=== PATIENT | female | born 1990 | race Caucasian/White ===

== ENCOUNTER → 2016-04-21 | Outpatient (CLI) | payer BC ==
[~2016-04-21] MED LIST: PRENAT PO
[2016-04-21 06:37] LABS: BASOPHIL # 0.1 10^3/ul (0.0-0.1); BASOPHILS % 0.9 % (0.0-2.0); EOSINOPHILS # 0.2 10^3/ul (0.0-0.5); EOSINOPHILS % 1.7 % (0.0-7.0); HEMATOCRIT 30.6 % (37.0-47.0); HEMOGLOBIN 10.8 g/dl (12.0-16.0); LYMPHOCYTES # 2.7 10^3/ul (0.8-2.9); LYMPHOCYTES % 29.4 % (15.0-51.0); MEAN CORPUSCULAR HEMOGLOBIN 32.9 pg (29.0-33.0); MEAN CORPUSCULAR HGB CONC 35.1 g/dl (32.0-37.0); MEAN CORPUSCULAR VOLUME 93.6 fl (82.0-101.0); MEAN PLATELET VOLUME 6.7 fl (7.4-10.4); MONOCYTE # 0.6 10^3/ul (0.3-0.9); NEUTROPHIL # 5.5 10^3/ul (1.6-7.5); PLATELET COUNT 214 10^3/UL (140-440); RED BLOOD COUNT 3.27 10^6/ul (4.20-5.40); RED CELL DISTRIBUTION WIDTH 13.3 % (11.5-14.5)
[2016-04-21 06:47] LABS: CONDITION 1
== END | disposition home or self-care (01) ==
LOC: LAB 05:19
PROVIDERS: ATTEND Obstetrics & Gynecology
DX: O24.419 Gestational diabetes mellitus in pregnancy, unspecified control (principal); Z3A.00 Weeks of gestation of pregnancy not specified
CPT/HCPCS: 82950; 85025

== ENCOUNTER 2016-06-25 14:10 | Outpatient (CLI) | payer BC ==
[~2016-06-25] VITALS: Ht 154.9 cm; Wt 68.0 kg
[2016-06-25] MEDS ORDERED: PRENAT PO (14:23)
[2016-06-25 14:43] VITALS: BP 107/56; PULSE 92; RESP 18
[2016-06-25] MEDS ORDERED: TERBUTALINE 1 MG/ML INJ SC STA (15:17)
[2016-06-25] MEDS ORDERED: LACTATED RINGER'S 1,000 ML IV* SCH (15:30)
[2016-06-25] MEDS ORDERED: TERBUTALINE 0 ML ONE (15:39)
[2016-06-25] MEDS ORDERED: TERBUTALINE 1 MG/ML INJ SC PRN (16:00)
[2016-06-25 17:40] LABS: URINE BLOOD (Dip) POC Negative (NEGATIVE)
--- NOTE | 2016-06-25 18:02 | PN ---
DATE: SUBJECTIVE: Patient is a 25-year-old, G1, P0, who presents at 36 weeks having uterine contractions. Patient had no vaginal bleeding. Positive movement. No nausea, vomiting, fevers, or chills . PAST MEDICAL HISTORY: None. PHYSICAL EXAMINATION: Vital signs are stable. Exam within normal limits. Abdomen is soft, nonten nanci, no rebound or guarding. Extremities: There is no edema. Exam done, patient was closed, thick , and high. NST . ASSESSMENT: Intrauterine at 36 weeks with false labor. Patient will be discharged home. Followed by Dr. Moralez as scheduled. precautions given. Patient stable upon discharge. Dictated By: AMADA CASPER MD /ISAMAR Conf#: [id number] DID#: [id number]
--- NOTE | 2016-06-25 18:14 | TRIAGE ---
OB Triage Datetime Report Generated by CPN: 06/25/2016 18:13 Datetime: 06/25/2016 17:25 Labor Evaluation Frequency: x3 Monitor Mode: External Duration (sec)2399: 60-80 Quality: Mild Pattern: Normal: <= 5 Contractions in 10 Minutes Resting Tone [place]: Relaxed Heart Rate FHR Baseline Rate: 130 FHR Baseline Changes: No Baseline Change Variability: Moderate 6-25 bpm Accelerations: 15X15 Datetime: 06/25/2016 17:00 Labor Evaluation Frequency: x1 Monitor Mode: External Duration (sec)2399: 60 Quality: Mild Pattern: Normal: <= 5 Contractions in 10 Minutes Resting Tone [place]: Relaxed Heart Rate FHR Baseline Rate: 135 FHR Baseline Changes: No Baseline Change Variability: Moderate 6-25 bpm Accelerations: 15X15 Datetime: 06/25/2016 16:52 Monitor Mode: External US Datetime: 06/25/2016 16:00 Labor Evaluation Frequency: 10-15 Monitor Mode: External Duration (sec)2399: 40-60 Quality: Mild Pattern: Normal: <= 5 Contractions in 10 Minutes Resting Tone [place]: Relaxed Heart Rate FHR Baseline Rate: 125 FHR Baseline Changes: No Baseline Change Variability: Moderate 6-25 bpm Accelerations: 15X15 Decelerations: None Datetime: 06/25/2016 15:28 Vaginal Exam Dilatation (cms): 0.0 Exam By: CKUNIYOSHI Datetime: 06/25/2016 15:12 Labor Evaluation Frequency: 4-10 Monitor Mode: External Duration (sec)2399: 40-80 Quality: Mild Pattern: Normal: <= 5 Contractions in 10 Minutes Resting Tone [place]: Relaxed Heart Rate FHR Baseline Rate: 125 Monitor Mode: External US FHR Baseline Changes: No Baseline Change Variability: Moderate 6-25 bpm Accelerations: 15X15 Decelerations: None Datetime: 06/25/2016 14:58 Nausea/Vomiting: Present Datetime: 06/25/2016 14:56 Comments: RN AT BEDSIDE, FHTS AUSCULTATED AT DOUBLE WHAT THE US MONITOR PICKED UP. Datetime: 06/25/2016 14:52 Monitor Mode: External US Comments: RN AT BEDSIDE; FHTS AUSCULTATED AT DOUBLE WHAT THE MONITOR RECORDED. Datetime: 06/25/2016 14:49 Monitor Mode: External US Comments: RN AT BEDSIDE; FHTS AUSCULTATED AT DOUBLE WHAT THE US MONINTOR RECORDED. Datetime: 06/25/2016 14:35 Stage of : OB Triage Maternal Assessment Level of Consciousness: Fully Conscious Headache: Denies Blurred Vision: No Respiratory Effort: Unlabored; Regular Rhythm; Equal Expansion Breath Sounds, Left: Clear and Equal Breath Sounds, Right: Clear and Equal Nausea/Vomiting: Denies RUQ Epigastric Pain: Denies Lower Extremities Edema: None Degree: None Upper Extremities Edema: None Degree: None Facial Edema: None Temperature Route: Oral Fall Risk Assessment History of Falling: (0) No Secondary Diagnosis: (0) No Ambulatory Aid: (0) Bedrest/Nurse Assist IV Therapy: (0) No Gait: (0) Normal/Bedrest/Immobile Mental Status: (0) Oriented to Own Ability Fall Score: 0 Fall Risk Score Definition: No Risk: No action required Pain Assessment Pain Scale: 8 Pain Presence: Intermittent Pain Type: Cramping; Sharp; Contraction Pain Location: Abdomen; Back Datetime: 06/25/2016 14:29 Time of Arrival: 06/25/2016 14:15 EGA: 36.5 Arrived By: Ambulatory Arrived From: Home Chief Complaint: CTX FROM 2300; SHARP LOWER ABDOMINAL PAIN, PAIN "ALL OVER" Movement: Present Contractions: Regular Time Contractions Began: 06/24/2016 23:00 Contractions: 5-10 Rupture of Membranes: Denies Vaginal Bleeding: None Vaginal Discharge: Denies Abdominal Trauma: Not Applicable Patient Complaints: Contractions; Back Pain Time Provider Notified: 06/25/2016 15:13 Provider Notified: REICHE Initial Plan: EFM x2, IV HYDRATION, SVE, TERBUTALINE Datetime: 03/08/2016 14:32 Fall Score: 0 Fall Risk Score Definition: No Risk: No action required Datetime: 03/08/2016 14:26 EGA: 21.1
[2016-06-25 18:29] LABS: ADD UMIC YES; URINE BILIRUBIN (Dip) NEGATIVE (NEGATIVE); URINE BLOOD (Dip) NEGATIVE (NEGATIVE); URINE COLOR LT. YELLOW (YELLOW); URINE GLUCOSE (Dip) NEGATIVE (NEGATIVE); URINE KETONES (Dip) NEGATIVE (NEGATIVE); URINE LEUKOCYTE ESTERASE (Dip) TRACE (NEGATIVE); URINE NITRITE (Dip) NEGATIVE (NEGATIVE); URINE TOTAL PROTEIN (Dip) NEGATIVE (NEGATIVE); URINE UROBILINOGEN (Dip) 0.2 E.U./dL (0.1-1.0)
[2016-06-25 18:37] LABS: BACTERIA,URINE FEW; SQUAMOUS EPITHELIAL CELL,UR MANY; URINE RBCS NONE SEEN /HPF (0)
== END 2016-06-25 18:00 | disposition home or self-care (01) ==
LOC: OBT 14:10 → L-D 14:13 → OBT 18:00
PROVIDERS: ATTEND Obstetrics & Gynecology
DX: O47.03 False labor before 37 completed weeks of gestation, third trimester (principal); Z3A.38 38 weeks gestation of pregnancy
CPT/HCPCS: 36415; 81001; 87086; 96360; G0463; 81003; J3105

== ENCOUNTER 2016-07-09 20:26 | Inpatient (IN) | payer BC ==
[~2016-07-09] VITALS: Ht 154.9 cm; Wt 69.6 kg
[2016-07-09 20:53] VITALS: Ht 154.9 cm; Wt 69.6 kg
[2016-07-09] MEDS ORDERED: ACET500C5 PO (20:53)
[2016-07-09 20:54] VITALS: BP 111/60; PULSE 93; RESP 20
[2016-07-09] MEDS ORDERED: AMPICILLIN 2 GM/NS (PMX) 100 ML IV ONE (21:30)
[2016-07-09] MEDS ORDERED: DINOPROSTONE 10 MG VAG SUPP VAG ONE (21:30)
[2016-07-09] MEDS ORDERED: METHYLERGONOVINE 0.2 MG INJ IM PRN (21:30)
[2016-07-09] MEDS ORDERED: OXYTOCIN 30 UNITS/LR 500 ML IV SCH ×2 (21:30)
[2016-07-09] MEDS ORDERED: IBUPROFEN 600 MG TAB PO PRN (21:30)
[2016-07-09] MEDS ORDERED: MISOPROSTOL 200 MCG TAB PR PRN (21:30)
[2016-07-09] MEDS ORDERED: LIDOCAINE 1% (MPF) 30 ML INJ INJ PRN (21:30)
[2016-07-09] MEDS ORDERED: CARBOPROST 250 MCG INJ IM PRN (21:30)
[2016-07-09] MEDS ORDERED: OXYTOCIN 30 UNITS/LR 500 ML IV PRN (21:30)
[2016-07-09] MEDS: LACTATED RINGER'S 1,000 ML IV SCH (22:36)
[2016-07-09 22:37] LABS: ADD SCAN DIFF NO
[2016-07-09 22:43] LABS: BASOPHIL # 0.1 10^3/ul (0.0-0.1); BASOPHILS % 0.6 % (0.0-2.0); EOSINOPHILS # 0.1 10^3/ul (0.0-0.5); EOSINOPHILS % 1.1 % (0.0-7.0); HEMATOCRIT 32.8 % (37.0-47.0); HEMOGLOBIN 11.4 g/dl (12.0-16.0); LYMPHOCYTES # 2.3 10^3/ul (0.8-2.9); LYMPHOCYTES % 26.7 % (15.0-51.0); MEAN CORPUSCULAR HGB CONC 34.8 g/dl (32.0-37.0); MEAN CORPUSCULAR VOLUME 92.1 fl (82.0-101.0); MEAN PLATELET VOLUME 9.4 fl (7.4-10.4); MONOCYTE # 0.6 10^3/ul (0.3-0.9); MONOCYTES % 7.2 % (0.0-11.0); NEUTROPHIL # 5.4 10^3/ul (1.6-7.5); NEUTROPHILS % 62.9 % (39.0-77.0); PLATELET COUNT 209 10^3/UL (140-415); RED BLOOD COUNT 3.56 10^6/ul (4.20-5.40); RED CELL DISTRIBUTION WIDTH 13.5 % (11.5-14.5); WHITE BLOOD COUNT 8.5 10^3/ul (4.8-10.8)
[2016-07-09 22:49] LABS: INR 0.89; PT RATIO 0.9
[2016-07-09 22:50] LABS: PARTIAL THROMBOPLASTIN TIME 23.9 Sec (25.0-35.0)
--- NOTE | 2016-07-09 22:55 | TRIAGE ---
OB Triage Datetime Report Generated by CPN: 07/09/2016 22:55 Datetime: 07/09/2016 22:41 Vaginal Exam Dilatation (cms): 0.0 Effacement (%): 50 Station: -3 Exam By: MG Datetime: 07/09/2016 22:06 Heart Rate FHR Baseline Rate: 140 Monitor Mode: External US Variability: Moderate 6-25 bpm Accelerations: 15X15 Decelerations: None Datetime: 07/09/2016 22:00 Stage of : OB Triage Labor Evaluation Frequency: Irregular Monitor Mode: External Duration (sec)2399: 40-80 Quality: Mild Pattern: Normal: <= 5 Contractions in 10 Minutes Resting Tone [place]: Relaxed Heart Rate FHR Baseline Rate: 135 Monitor Mode: External US Variability: Moderate 6-25 bpm Accelerations: 15X15 Decelerations: None Category: Category I Datetime: 07/09/2016 21:00 Stage of : OB Triage Labor Evaluation Frequency: Irregular Monitor Mode: External Duration (sec)2399: 50-70 Quality: Mild Pattern: Normal: <= 5 Contractions in 10 Minutes Resting Tone [place]: Relaxed Heart Rate FHR Baseline Rate: 140 Monitor Mode: External US Variability: Moderate 6-25 bpm Accelerations: 15X15 Decelerations: None Category: Category I Datetime: 07/09/2016 20:50 Vaginal Exam Dilatation (cms): 0.0 Effacement (%): 50 Station: -3 Exam By: ROSA Trinh Membrane Status: Intact Vaginal Bleeding: None Cervix, Consistency: Firm Cervix, Position: Posterior Datetime: 07/09/2016 20:47 Contraction Comments: [place] changed Datetime: 07/09/2016 20:35 Stage of : OB Triage Assessment Type: Triage Maternal Assessment Level of Consciousness: Fully Conscious DTR's/Clonus: DTRs 2+; No Clonus Headache: Denies Blurred Vision: No Respiratory Effort: Unlabored; Regular Rhythm; Equal Expansion Breath Sounds, Left: Clear and Equal Breath Sounds, Right: Clear and Equal Nausea/Vomiting: Present (Annotations: Nausea only) RUQ Epigastric Pain: Denies Lower Extremities Edema: None Degree: None Upper Extremities Edema: None Degree: None Facial Edema: None Temperature Route: Oral Fall Risk Assessment History of Falling: (0) No Secondary Diagnosis: (0) No Ambulatory Aid: (0) Bedrest/Nurse Assist IV Therapy: (0) No Gait: (0) Normal/Bedrest/Immobile Mental Status: (0) Oriented to Own Ability Fall Score: 0 Fall Risk Score Definition: No Risk: No action required Pain Assessment Pain Scale: 8 Pain Presence: Intermittent Pain Type: Cramping; Contraction Pain Location: Abdomen; Back Pain Relief Measures: Comfort Measures Datetime: 07/09/2016 20:34 Monitor Mode: External Contraction Comments: [place] applied Heart Rate FHR Baseline Rate: 140 Monitor Mode: External US Comments: EFM applied Datetime: 07/09/2016 20:32 Time of Arrival: 07/09/2016 20:23 EGA: 38.5 Arrived By: Ambulatory Arrived From: Home Chief Complaint: UCs, lower abd pain Movement: Present Contractions: Regular Time Contractions Began: 07/09/2016 10:30 Contractions: q5mins Rupture of Membranes: Denies Vaginal Bleeding: None Vaginal Discharge: Present Recent Sexual Intercouse: Denies Abdominal Trauma: Not Applicable Patient Complaints: Contractions; Cramping; Back Pain Time Provider Notified: 07/09/2016 20:25 Provider Notified: Reiche Initial Plan: EFM x2, SVE Datetime: 07/09/2016 20:25 Stage of : OB Triage Datetime: 06/25/2016 14:35 Fall Score: 0 Fall Risk Score Definition: No Risk: No action required Datetime: 06/25/2016 14:29 EGA: 36.5 Datetime: 03/08/2016 14:32 Fall Score: 0 Fall Risk Score Definition: No Risk: No action required Datetime: 03/08/2016 14:26 EGA: 21.1
[2016-07-10] MEDS: BUTORPHANOL 2 MG INJ IV PRN ×5 (00:51→14:17)
[2016-07-10] MEDS ORDERED: ONDANSETRON 4 MG INJ ONE ×2 (01:10→17:45)
[2016-07-10] MEDS: ONDANSETRON 4 MG INJ IV PRN ×3 (01:44→14:22)
[2016-07-10] MEDS: AMPICILLIN 1 GM/NS (PMX) 50 ML IV SCH ×5 (03:11→17:30)
[2016-07-10] MEDS: LACTATED RINGER'S 1,000 ML IV SCH ×3 (04:16→22:52)
[2016-07-10] MEDS ORDERED: LACTATED RINGER'S 1,000 ML IV PRN (08:00)
[2016-07-10] MEDS ORDERED: CEFAZOLIN 2 GM/50 ML (PMX) 50 ML IV SCH (14:00)
[2016-07-10] MEDS ORDERED: morphine SULFATE/PF (10 MG/10 ML) INJ ONE (16:38)
[2016-07-10] MEDS ORDERED: FENTAnyl 50 MCG/ML VIAL ONE (16:39)
[2016-07-10] MEDS ORDERED: PHENYLephrine (100 MCG/ML) 5ML SYG ONE (16:45)
[2016-07-10] MEDS ORDERED: OXYTOCIN 30 UNITS/LR 500 ML IV ONE (16:45)
[2016-07-10] MEDS ORDERED: HYDROmorphONE 1 MG/ML SYG IV PRN ×2 (17:30)
[2016-07-10] MEDS ORDERED: DIPHENHYDRAMINE 50 MG INJ IV PRN (17:30)
[2016-07-10] MEDS ORDERED: ZOLPIDEM 5 MG TAB PO PRN (17:30)
[2016-07-10] MEDS ORDERED: ONDANSETRON 4 MG INJ IV PRN (17:30)
[2016-07-10] MEDS ORDERED: NALOXONE (0.4 MG/ML) INJ IV PRN (17:30)
[2016-07-10] MEDS ORDERED: DEXAMETHASONE 4 MG/ML 1 ML INJ ONE (18:07)
[2016-07-10] MEDS: KETOROLAC 30 MG INJ IV PRN (20:39)
[2016-07-10] MEDS: SENNA/DOCUSATE NA (8.6MG/50MG) TAB PO SCH (21:00)
[2016-07-10] MEDS ORDERED: CARBOPROST 250 MCG INJ IM PRN (21:00)
[2016-07-10] MEDS ORDERED: MISOPROSTOL 200 MCG TAB PR PRN (21:00)
[2016-07-10] MEDS ORDERED: LANOLIN 7 GM TUBE TOP PRN (21:00)
[2016-07-10] MEDS ORDERED: OXYTOCIN 30 UNITS/LR 500 ML IV PRN (21:00)
[2016-07-10] MEDS ORDERED: METHYLERGONOVINE 0.2 MG INJ IM PRN (21:00)
[2016-07-10 21:30] VITALS: BP 120/57; PULSE 77; RESP 18
[2016-07-10 23:56] VITALS: BP 134/63; PULSE 92; RESP 18
[2016-07-11 04:10] VITALS: BP 106/50; PULSE 89; RESP 18
[2016-07-11] MEDS: LACTATED RINGER'S 1,000 ML IV SCH ×2 (05:36→14:39)
[2016-07-11 07:45] VITALS: BP 102/52; PULSE 88; RESP 19
[2016-07-11 08:05] LABS: ADD SCAN DIFF NO
[2016-07-11 08:08] LABS: BASOPHILS % 0.3 % (0.0-2.0); EOSINOPHILS % 0.2 % (0.0-7.0); HEMOGLOBIN 8.8 g/dl (12.0-16.0); LYMPHOCYTES # 2.3 10^3/ul (0.8-2.9); LYMPHOCYTES % 20.4 % (15.0-51.0); MEAN CORPUSCULAR HGB CONC 33.8 g/dl (32.0-37.0); MEAN CORPUSCULAR VOLUME 94.5 fl (82.0-101.0); MEAN PLATELET VOLUME 9.7 fl (7.4-10.4); MONOCYTE # 0.9 10^3/ul (0.3-0.9); MONOCYTES % 8.2 % (0.0-11.0); NEUTROPHILS % 70.2 % (39.0-77.0); PLATELET COUNT 171 10^3/UL (140-415); RED BLOOD COUNT 2.75 10^6/ul (4.20-5.40); RED CELL DISTRIBUTION WIDTH 13.7 % (11.5-14.5); WHITE BLOOD COUNT 11.4 10^3/ul (4.8-10.8)
[2016-07-11] MEDS: SENNA/DOCUSATE NA (8.6MG/50MG) TAB PO SCH ×2 (09:00→20:30)
[2016-07-11] MEDS: KETOROLAC 30 MG INJ IV PRN (11:31)
[2016-07-11 12:00] VITALS: BP 99/54; PULSE 82; RESP 18
[2016-07-11 16:30] VITALS: BP 95/52; PULSE 87; RESP 16
--- NOTE | 2016-07-11 16:45 | QN ---
Documentation Comment POD #1 Pt is smiling and comfortable and with good pain management. No Flatus yet. T=98.5 BP 99/54 Dressing C/D/I. Lochia moderate. Ext +A pumps in place. WBC 11.4 Hgb 8.8 Plts 171K. P: Continue care. Will D/C IV and D/C chandler later today. Pt will then be encouraged to ambulate. P.O Pain meds as needed. DAQUAN CINTRON MD Jul 11, 2016 16:45
[2016-07-11] MEDS ORDERED: OXYCODONE/ACETAMINOPHEN (5/325) TAB PO PRN ×2 (17:00)
[2016-07-11] MEDS: IBUPROFEN 800 MG TAB PO SCH ×2 (17:14→20:30)
[2016-07-11 19:45] VITALS: BP 103/54; PULSE 92; RESP 20
--- NOTE | 2016-07-11 22:17 | PREOPHP ---
DATE OF ADMISSION: 07/09/2016 HISTORY OF PRESENT ILLNESS: The patient is a 25-year-old 1, last menstrual period 10/12/2014 with an estimated date of confinement of 07/18/2016 with an intrauterine at 38 weeks 6 days. The patient came into the hospital on the evening of the with contractions and in a lot of pain. Decided to admit her for delivery. Cervix was still somewhat thick, 60% effaced , 1 to 2 cm, -2 to 3 with a medium firm cervix. Therefore, gave her Cervidil for 12 hours. This caused a lot of contractions. The baby's head did not descend and her cervical exam did not change. The patient became extremely frustrated, just was a lot of pain, pain medication was not adequate for her, and she requested to proceed to at that time. Of note, the estimated weight at the visit the week before on the done in the office was 3800 grams. ALLISON at that time was 9.7. BPP was 8/8. The patient is 5 feet 1 and about 100 pounds normally when not , so felt to be macrosomic for her. course was otherwise uneventful. PAST MEDICAL HISTORY: Negative. PAST SURGICAL HISTORY: She had an appendectomy previously. ALLERGIES: NO KNOWN DRUG ALLERGIES. SOCIAL HISTORY: Negative. Previous smoker, but she quit during the . PHYSICAL EXAMINATION: GENERAL: She is 5 foot 1 inch, 151 pounds, had gained about 50 pounds during this . HEART: Regular rate and rhythm. LUNGS: Clear to auscultation. ABDOMEN: Soft, gravid. PELVIC: Cervical exam 60%, 1 to 2, -2 to 3, vertex, medium firm. LABORATORY WORK: Blood type A positive, antibody screen negative, serology nonreactive, rubella immune, hepatitis B surface antigen negative, hepatitis C antibody negative, HIV negative. MCV 90, platelets 210,000. First and second trimester screens with nuchal translucency were negative. She is beta strep positive. The patient had noninvasive testing, which showed a male with normal chromosomes and no microdeletions of the ones checked and standard panel with SMA, cystic fibrosis, and Fragile X testing, which were all negative. ASSESSMENT: 1. Intrauterine at 38 weeks 6 days. 2. Cephalopelvic disproportion. 3. Relative macrosomia. 4. Failure to progress. PLAN: Primary low transverse section. Dictated By: DAQUAN MENSAH/ISAMAR Conf#: [id number] DID#: [id number] MTDD
--- NOTE | 2016-07-11 22:26 | OPR ---
DATE OF OPERATION: 07/10/2016 PREOPERATIVE DIAGNOSES: Intrauterine at 38 weeks 6 days, cephalopelvic disproportion and failure to progress. POSTOPERATIVE DIAGNOSES: Intrauterine at 38 weeks 6 days, cephalopelvic disproportion, fa ilure to progress, status post delivery of a viable male weighing 3795 grams or 8 pounds 6 ou nces with scores 10 and 10. OPERATION PERFORMED: Primary low transverse section. SURGEON: Sharan Moralez MD WRITER PRODUCER: Dr. Tsang. ANESTHESIA: Dr. Kern with a spinal block. ESTIMATED BLOOD LOSS: 500 mL. COMPLICATIONS: None. PROCEDURE IN DETAIL: The patient was brought to the operating room, placed on the operating room ta ble and was sat up for a spinal block. She was then laid in the supine position and prepped and arielle ped, a Conti catheter was placed. Knife used to incise the skin and a Pfannenstiel incision through the skin and subcutaneous tissue down to the level of fascia. Fascia was incised and extended bila terally using Bovie cautery and scissors. Superior edge of the fascia was grasped with Nikolas clamp s and the rectus muscles were from the overlying fascia using blunt dissection and Bovie c autery. This was repeated at the lower edge of the incision as well. The rectus muscles were separ ated in the midline with a Scarlet clamp and the anterior peritoneum was bluntly entered using the kaci geon's fingers. The incision was then stretched open with hands. A bladder blade and Albarran re tractor were placed in the incision. Bladder flap was developed using Metzenbaum scissors and blunt dissection. The lower uterine segment was incised with a knife, entered using a Scarlet clamp and th en stretched open with hands. The amniotic fluid was clear. The head was not engaged in the pelvis . It was easily elevated up through the incision and with gentle fundal pressure was delivered. The mouth and nares were both suctioned, and the rest of the baby was easily delivered. The cord was d oubly clamped and cut and the baby was brought over to the warmer with the respiratory team in [facility]. Cord blood was obtained. The placenta was manually extracted. Uterus was externalized, wra pped in a moist lap and a dry lap was used to clean the interior of the uterus. The incision was th en closed in 2 layers using #1 chromic in a running locking stitch. Tubes and ovaries were examined and noted to be normal. The pelvis was irrigated well. The uterus was replaced back into the abdo men. Incision examined again and noted to be dry. The anterior peritoneum was then closed using 2- 0 chromic in a running stitch. The rectus muscles were brought back together at midline with 3 inte rrupted gutrsr-ov-yejvi sutures of the same material. The underbelly of the fascia was examined and noted to be dry. The fascia was then closed using 0 Vicryl suture in a running stitch from each la teral edge to midline with overlap at the midline. Subcutaneous tissue was irrigated well, cautery applied where needed for hemostasis. The subcutaneous layer was closed with 2-0 chromic in a runnin g stitch and the skin was closed with 3-0 Monocryl in a subcuticular stitch. Steri-Strips with Mast isol were placed and a pressure dressing applied overall. The patient was then transferred to the r ecovery room in excellent condition having tolerated the procedure well. Dictated By: SHARAN MENSAH/ISAMAR Conf#: [id number] DID#: [id number]
[2016-07-12 04:40] VITALS: BP 112/56; PULSE 91; RESP 19
[2016-07-12 08:30] VITALS: BP 114/51; PULSE 89; RESP 19
[2016-07-12] MEDS: SENNA/DOCUSATE NA (8.6MG/50MG) TAB PO SCH ×2 (09:32→21:14)
[2016-07-12] MEDS: IBUPROFEN 800 MG TAB PO SCH ×4 (09:33→21:14)
--- NOTE | 2016-07-12 13:04 | PN ---
Date/Time of Note Date/Time of Note DATE: 07/12/16 TIME: 13:00 OB Subjective Subjective Subjective passing flatus voiding ok OB Objective Objective Objective vss afebrile abdomen no ck almost kicked out lochia min ext no tenderness OB Assessment/Plan Other Assessment: post section #2 stable Other plan: as ordered NATALIIA DELACRUZ MD Jul 12, 2016 13:04
[2016-07-12 15:12] VITALS: BP 107/57; PULSE 85; RESP 16
[2016-07-12 19:45] VITALS: BP 102/55; PULSE 88; RESP 18
[2016-07-13 08:00] VITALS: BP 116/70; PULSE 95; RESP 16
[2016-07-13] MEDS: IBUPROFEN 800 MG TAB PO SCH (09:08)
[2016-07-13] MEDS: SENNA/DOCUSATE NA (8.6MG/50MG) TAB PO SCH (09:08)
--- NOTE | 2016-07-13 13:11 | PD.PPDC ---
[employer]ENT Discharge Instruction Diagnosis Final Diagnosis: s/p primary section Condition Patient Condition: Stable Diet Diet: Resume Regular Diet Activity/Restrictions Activity: May Shower Restrictions: No Exercising No Lifting Minimize Stair-climbing No Sexual Activity Nothing in the Vagina No [place] No Tampons, douche Wound/Drain Care Instructions Wound/Drain Care Instructions: Wash with soap and water Keep clean and dry Follow-up Follow-up with Physician: 2, Week/Weeks Return to clinic for STRUCTURAL DRAFTSMAN Instructions: Fever greater than 101 Chills Worsening abdominal pain Excessive Vaginal Bleeding More than 2 pads per hour Unable to tolerate diet OB Instructions: Breast Tenderness Depression Blurried Vision Headache Surgical Instructions: Incisional Drainage Incisional Redness NATALIIA DELACRUZ MD Jul 13, 2016 13:11
--- NOTE | 2016-07-13 13:20 | DS ---
Date/Time of Note Date/Time of Note DATE: 07/13/16 TIME: 13:18 Obstetrical Discharge Record Final Diagnosis Final Diagnosis: Term delivered Complications Augmentation: Yes Condition on Discharge Physical Assessment Last Vitals: vss afebrile Voiding: Yes Bowel Movement: Yes Breast: Soft, non-tender Fundus: Firm Abdomen and Incision: soft wound dry Calf Tenderness: No Patient Condition: Stable NATALIIA DELACRUZ MD Jul 13, 2016 13:20
== END 2016-07-13 14:15 | disposition home or self-care (01) | DRG 766 ==
LOC: EEVIPCON → OBT 20:26 → L-D 20:27 → OBT 21:22 → L-D 07-10 17:21 → PP1 07-10 21:36
PROVIDERS: ADMIT Obstetrics & Gynecology; ATTEND Obstetrics & Gynecology
PROC: 10D00Z1 Extraction of Products of Conception, Low, Open Approach (ICD-10-PCS; principal; 2016-07-10 19:00)
DX: O62.0 Primary inadequate contractions (principal); O33.9 Maternal care for disproportion, unspecified; Z3A.38 38 weeks gestation of pregnancy; Z37.0 Single live birth
CPT/HCPCS: 36415; 85025; 85610; 85730; 86592; 86900; 86901; 99464; G0463; J0290; J0690; J1100; J1885; J2274; J2370; J2405; J2590; J3010; J7120

== ENCOUNTER 2016-12-22 22:32 | Emergency (ER) | payer BC ==
[~2016-12-22] VITALS: Ht 154.9 cm; Wt 55.0 kg
[~2016-12-22 22:32] MED LIST changes: +ACET500C5 PO
[2016-12-22] MEDS ORDERED: SOD CHLORIDE 0.9% 1,000 ML IV STA (22:38)
[2016-12-22] MEDS ORDERED: METOCLOPRAMIDE 10 MG INJ IV STA (22:38)
[2016-12-22] MEDS ORDERED: DIPHENHYDRAMINE 50 MG INJ IV ONE (23:00)
[2016-12-22 23:14] LABS: BASOPHIL # 0.1 10^3/ul (0.0-0.1); BASOPHILS % 0.7 % (0.0-2.0); EOSINOPHILS # 0.2 10^3/ul (0.0-0.5); EOSINOPHILS % 3.6 % (0.0-7.0); HEMATOCRIT 33.4 % (37.0-47.0); HEMOGLOBIN 11.7 g/dl (12.0-16.0); LYMPHOCYTES # 3.2 10^3/ul (0.8-2.9); LYMPHOCYTES % 47.3 % (15.0-51.0); MEAN CORPUSCULAR HEMOGLOBIN 30.3 pg (29.0-33.0); MEAN CORPUSCULAR VOLUME 86.5 fl (82.0-101.0); MEAN PLATELET VOLUME 9.1 fl (7.4-10.4); MONOCYTE # 0.4 10^3/ul (0.3-0.9); MONOCYTES % 5.8 % (0.0-11.0); NEUTROPHILS % 42.3 % (39.0-77.0); PLATELET COUNT 204 10^3/UL (140-415); RED BLOOD COUNT 3.86 10^6/ul (4.20-5.40); RED CELL DISTRIBUTION WIDTH 12.9 % (11.5-14.5); WHITE BLOOD COUNT 6.7 10^3/ul (4.8-10.8)
[2016-12-22 23:21] VITALS: Ht 154.9 cm; Wt 55.0 kg
[2016-12-22] MEDS ORDERED: BUTA1CAP38 PO (23:27)
[2016-12-22] MEDS ORDERED: GABA300C16 PO (23:27)
--- NOTE | 2016-12-22 23:31 | ERD ---
ER Documentation Chief Complaint Date/Time DATE: 12/22/16 TIME: 23:29 Chief Complaint migraine type PATEL all day, h/o same HPI This 26-year-old female presents with a week and a half of a migraine headache. Been diagnosed with migraine headaches before. No photophobia no nausea vomiting but has felt extra tired lately. ROS All systems reviewed and are negative except as per history of present illness. Medications Home Meds Active Scripts Gabapentin* (Gabapentin*) 300 Mg Capsule, 300 MG PO BID, #20 CAP Prov:SHU BANKS DO 12/22/16 Wegsgraudx-Smzmubdlmotap-Fzqytgiz* (Fioricet*) 50-300-40 Mg Capsule, 1 CAP PO Q4H Y for HEADACHE, #10 CAP Prov:SHU BANKS DO 12/22/16 Reported Medications Acetaminophen* (Tylophen*) 500 Mg Capsule, 1000 MG PO Q6H Y for HEADACHE, TAB 07/09/16 Multivit/Min/Fol Ac/Iron/Pren* ( S*) 1 Tab Tab, 2 TAB PO DAILY, TAB 06/25/16 Allergies Allergies: Coded Allergies: No Known Allergy (Unverified , 07/09/16) PMhx/Soc History of Surgery: Yes (APPENDECTOMY) Anesthesia Reaction: No Hx Neurological Disorder: No Hx Respiratory Disorders: No Hx Cardiac Disorders: No Hx Psychiatric Problems: No Hx Miscellaneous Medical Probl: No Hx Alcohol Use: No Hx Substance Use: No Hx Tobacco Use: Yes Physical Exam Vitals Vital Signs Date Time Temp Pulse Resp B/P Pulse Ox O2 Delivery O2 Flow Rate FiO2 12/22/16 23:21 97.4 78 18 100/68 100 Physical Exam Const: [] Mild distress, appears uncomfortable Head: Atraumatic Eyes: Normal Conjunctiva, EOMI, PRL ENT: Normal External Ears, Nose and Mouth. Neck: Full range of motion..~ No meningismus. Resp: Clear to auscultation bilaterally Cardio: Regular rate and rhythm, no murmurs Abd: Soft, non tender, non distended. Normal bowel sounds Skin: No petechiae or rashes Back: No midline or flank tenderness Ext: No cyanosis, or edema Neur: Awake and alertAnd oriented 3, cranial nerves II through XII intact, no cerebellar deficits, normal gait. Psych: Normal Mood and Affect Result Diagram: 12/22/16 2304 Results 24 hrs Laboratory Tests Test 12/22/16 23:04 White Blood Count 6.710^3/ul Red Blood Count 3.8610^6/ul Hemoglobin 11.7g/dl Hematocrit 33.4% Mean Corpuscular Volume 86.5fl Mean Corpuscular Hemoglobin 30.3pg Mean Corpuscular Hemoglobin Concent 35.0g/dl Red Cell Distribution Width 12.9% Platelet Count 04534^3/UL Mean Platelet Volume 9.1fl Neutrophils % 42.3% Lymphocytes % 47.3% Monocytes % 5.8% Eosinophils % 3.6% Basophils % 0.7% Nucleated Red Blood Cells % 0.0/100WBC Neutrophils # (Manual) 2.810^3/ul Lymphocytes # 3.210^3/ul Monocytes # 0.410^3/ul Eosinophils # 0.210^3/ul Basophils # 0.110^3/ul Nucleated Red Blood Cells # 0.010^3/ul Current Medications Medications (Trade) Dose Ordered Sig/Jammie Route PRN Reason Start Time Stop Time Status Last Admin Dose Admin Sodium Chloride (NS) 1,000 ml @ 1,000 mls/hr Q1H STAT IV 12/22/16 22:38 12/22/16 23:37 12/22/16 23:07 Metoclopramide HCl (Reglan) 10 mg ONCE STAT IV 12/22/16 22:38 12/22/16 22:40 DC 12/22/16 23:07 Diphenhydramine HCl (Benadryl) 12.5 mg ONCE ONCE IV 12/22/16 23:00 12/22/16 23:01 DC 12/22/16 23:07 Procedures/MDM Laboratories were obtained for possible anemia or other cause of lightheadedness and headache cocktail was given with a liter of normal saline 4.5 mg of IV Benadryl and 10 mg of IV Reglan. Patient reported some relief of her headache stated that she felt well enough to go home. Discharge with primary care follow-up and return precautions. Also discharge with a few pills of Fioricet and gabapentin. Departure Diagnosis: Primary Impression: Lightheaded Additional Impression: Migraine Condition: Stable SHU BANKS DO Dec 22, 2016 23:31
[2016-12-22 23:42] LABS: ALBUMIN 3.7 g/dl (3.3-4.9); ALBUMIN/GLOBULIN RATIO 1.32; BILIRUBIN,INDIRECT 0.2 mg/dl (0-1.1); BILIRUBIN,TOTAL 0.2 mg/dl (0.2-1.3); CALCIUM 9.1 mg/dl (8.4-10.2); CREATININE 0.69 mg/dl (0.44-1.00); POTASSIUM 3.6 mmol/L (3.5-5.1); TOTAL PROTEIN 6.5 g/dl (6.1-8.1)
[2016-12-23 00:03] VITALS: BP 100/68; PULSE 70; RESP 18
== END 2016-12-23 00:03 | disposition home or self-care (01) ==
LOC: E/R 22:32
DX: R42 Dizziness and giddiness (principal)
CPT/HCPCS: 80053; 84443; 85025; 96374; 96375; 99284; J1200; J2765; J7030

== ENCOUNTER → 2017-01-11 | Outpatient (CLI) | payer BC ==
[~2017-01-11] MED LIST changes: +BUTA1CAP38 PO; +GABA300C16 PO
== END | disposition home or self-care (01) ==
LOC: LAB 15:17
PROVIDERS: ATTEND Obstetrics & Gynecology
DX: O20.0 Threatened abortion (principal)
CPT/HCPCS: 84144; 84702; 84703

== ENCOUNTER 2017-01-14 17:09 | Emergency (ER) | payer BC ==
--- NOTE | 2017-01-14 18:08 | RADRPT ---
PROCEDURE: OB Ultrasound. CLINICAL INDICATION: Positive test. Vaginal bleeding. TECHNIQUE: Ultrasound of the pelvis was performed with transabdominal and transvaginal sonography in the axial and sagittal planes. COMPARISON: No prior study is available for comparison. FINDINGS: There is a single intrauterine gestational sac. pole and yolk sac are not visualized. Mean sac diameter is 0.53 cm. Menstrual age by ultrasound dates is 5 weeks 1 day. This indicates an expected date of delivery of 09/15/2017. The right ovary appears normal measuring 2.6 x 1.7 x 2.1 cm. The left ovary appears normal in size measuring 3.4 x 3.3 x 3.4 cm. There is a benign-appearing left ovarian cyst measuring 2.4 x 2.5 x 2.8 cm. There are internal echoes indicating it may be hemorrhag ic. Color Doppler and pulsed Doppler sonography demonstrate normal flow to the ovaries. There is no other pelvic mass or free fluid. IMPRESSION: 1. Single early intrauterine gestational sac measuring 5 weeks 1 day gestational age. Follow-up is advised as it is too early to visualize pole or yolk sac. 2. Hemorrhagic left ovarian cyst measuring up to 2.8 cm. 3. Otherwise unremarkable study. RPTAT: QQ .Justin Giron MD, Date Time Electronically viewed and signed by .Justin Giron MD, on 01/14/2017 18:07 .R/
--- NOTE | 2017-01-14 18:16 | ERD ---
ER Documentation Chief Complaint Date/Time DATE: 01/14/17 TIME: 18:15 Chief Complaint HPI This is a 26-year-old female presents to the emergency room for evaluation of lab work. Patient says she wants to get her beta-hCG levels tested. She did have an elevated level approximately 2 weeks ago with no visible IUP ROS All systems reviewed and are negative except as per history of present illness. Medications Home Meds Active Scripts Gabapentin* (Gabapentin*) 300 Mg Capsule, 300 MG PO BID, #20 CAP Prov:SHU BANKS DO 12/22/16 Nrwlfstrlo-Sqklhtwjdegak-Nqjrioao* (Fioricet*) 50-300-40 Mg Capsule, 1 CAP PO Q4H Y for HEADACHE, #10 CAP Prov:SHU BANKS DO 12/22/16 Reported Medications Acetaminophen* (Tylophen*) 500 Mg Capsule, 1000 MG PO Q6H Y for HEADACHE, TAB 07/09/16 Multivit/Min/Fol Ac/Iron/Pren* ( S*) 1 Tab Tab, 2 TAB PO DAILY, TAB 06/25/16 Allergies Allergies: Coded Allergies: No Known Allergy (Unverified , 07/09/16) PMhx/Soc History of Surgery: Yes (APPENDECTOMY) Anesthesia Reaction: No Hx Neurological Disorder: No Hx Respiratory Disorders: No Hx Cardiac Disorders: No Hx Psychiatric Problems: No Hx Miscellaneous Medical Probl: Yes (migraines) Hx Alcohol Use: No Hx Substance Use: No Hx Tobacco Use: Yes Smoking Status: Light tobacco smoker Physical Exam Physical Exam Const: No acute distress Head: Atraumatic Eyes: Normal Conjunctiva ENT: Normal External Ears, Nose and Mouth. Neck: Full range of motion..~ No meningismus. Resp: Clear to auscultation bilaterally Cardio: Regular rate and rhythm, no murmurs Abd: Soft, non tender, non distended. Normal bowel sounds Skin: No petechiae or rashes Back: No midline or flank tenderness Ext: No cyanosis, or edema Neur: Awake and alert Psych: Normal Mood and Affect Procedures/MDM 26-year-old female presents emergency room for evaluation of lab work. The left patient did have an elevated beta-hCG and IUP on pelvic ultrasound. Patient will be discharged with OB follow-up Departure Diagnosis: Primary Impression: Encounter for laboratory test Condition: Stable SAADIA VILLEGAS DO Jan 14, 2017 18:16
== END 2017-01-14 18:15 | disposition home or self-care (01) ==
LOC: E/R 17:09
DX: O20.9 Hemorrhage in early pregnancy, unspecified (principal); O99.331 Smoking (tobacco) complicating pregnancy, first trimester; F17.210 Nicotine dependence, cigarettes, uncomplicated; Z3A.01 Less than 8 weeks gestation of pregnancy
CPT/HCPCS: 36415; 76801; 76817; 84702

== ENCOUNTER → 2017-01-18 | Outpatient (CLI) | payer BC | END | disposition home or self-care (01) | LOC: LAB 11:56 | PROVIDERS: ATTEND Obstetrics & Gynecology | DX: O20.0 Threatened abortion (principal); Z3A.00 Weeks of gestation of pregnancy not specified | CPT/HCPCS: 84702 ==

== ENCOUNTER → 2017-03-01 | Outpatient (CLI) | payer BC ==
[2017-03-01 17:21] LABS: ADD UMIC NO; UR ASCORBIC ACID 20 mg/dL (NEGATIVE); UR BILIRUBIN (Dip) NEGATIVE (NEGATIVE); UR BLOOD (Dip) NEGATIVE (NEGATIVE); UR CLARITY CLEAR (CLEAR); UR COLOR YELLOW (YELLOW); UR GLUCOSE (Dip) NEGATIVE (NEGATIVE); UR KETONES (Dip) NEGATIVE (NEGATIVE); UR LEUKOCYTE ESTERASE (Dip) NEGATIVE Leu/ul (NEGATIVE); UR NITRITE (Dip) NEGATIVE (NEGATIVE); UR SPECIFIC GRAVITY (Dip) 1.023 (1.003-1.030); UR TOTAL PROTEIN (Dip) NEGATIVE (NEGATIVE); UR UROBILINOGEN (Dip) NEGATIVE (NEGATIVE)
[2017-03-01 17:28] LABS: BASOPHIL # 0.1 10^3/ul (0.0-0.1); BASOPHILS % 0.7 % (0.0-2.0); EOSINOPHILS # 0.2 10^3/ul (0.0-0.5); EOSINOPHILS % 2.3 % (0.0-7.0); HEMATOCRIT 34.2 % (37.0-47.0); HEMOGLOBIN 11.9 g/dl (12.0-16.0); LYMPHOCYTES # 2.2 10^3/ul (0.8-2.9); MEAN CORPUSCULAR HEMOGLOBIN 30.2 pg (29.0-33.0); MEAN CORPUSCULAR HGB CONC 34.8 g/dl (32.0-37.0); MEAN CORPUSCULAR VOLUME 86.8 fl (82.0-101.0); MEAN PLATELET VOLUME 9.1 fl (7.4-10.4); MONOCYTE # 0.4 10^3/ul (0.3-0.9); MONOCYTES % 5.8 % (0.0-11.0); NEUTROPHIL # 4.6 10^3/ul (1.6-7.5); NEUTROPHILS % 61.9 % (39.0-77.0); PLATELET COUNT 244 10^3/UL (140-415); RED BLOOD COUNT 3.94 10^6/ul (4.20-5.40); RED CELL DISTRIBUTION WIDTH 12.7 % (11.5-14.5); WHITE BLOOD COUNT 7.4 10^3/ul (4.8-10.8)
[2017-03-01 18:31] LABS: THYROID STIMULATING HORMONE 0.492 MIU/L (0.465-4.680)
[2017-03-03 11:52] LABS: RUBELLA ANTIBODY - IGG 27.1 index
== END | disposition home or self-care (01) ==
LOC: LAB 16:31
PROVIDERS: ATTEND Obstetrics & Gynecology
DX: O98.511 Other viral diseases complicating pregnancy, first trimester (principal); Z3A.01 Less than 8 weeks gestation of pregnancy
CPT/HCPCS: 81003; 84443; 85025; 86592; 86703; 86762; 86803; 86885; 86900; 86901; 87340

== ENCOUNTER → 2017-04-23 | Outpatient (CLI) | END | disposition home or self-care (01) ==

== ENCOUNTER → 2017-05-23 | Outpatient (CLI) | END | disposition home or self-care (01) ==

== ENCOUNTER → 2017-05-28 | Outpatient (CLI) | END | disposition home or self-care (01) ==

== ENCOUNTER 2017-08-29 11:36 | Outpatient (CLI) | END 2017-08-29 16:02 | disposition home or self-care (01) ==

== ENCOUNTER 2017-09-05 06:08 | Inpatient (IN) | END 2017-09-07 15:15 | disposition home or self-care (01) | DRG 766 ==

== ENCOUNTER 2018-05-31 09:10 | Emergency (ER) | payer BC ==
[~2018-05-31] VITALS: Ht 162.6 cm; Wt 61.4 kg
[~2018-05-31 09:10] MED LIST changes: -ACET500C5 PO; -BUTA1CAP38 PO; -GABA300C16 PO; +HYDR-3601 PO; +IBUP-1544 PO
[2018-05-31 09:30] VITALS: Ht 162.6 cm; Wt 61.4 kg
--- NOTE | 2018-05-31 09:32 | ERD ---
ER Documentation Chief Complaint Chief Complaint HPI This is a 27-year-old female that states she has an unknown demyelinating disease currently awaiting to see a neurologist. The patient stated that over the past several weeks she has been having significant weakness of her left upper extremity. She denies any trauma to her left upper extremity. She is right-handed dominant. She denies a headache. She denies any changes in vision. She has had no fevers or shaking or chills. She denies any abdominal pain. ROS All systems reviewed and are negative except as per history of present illness. Medications Home Meds Active Scripts Hydrocodone Bit-Acetaminophen (Hydrocodone Bit-APAP) 5-325MG Tablet, 1 TAB PO Q4H PRN for PAIN LEVEL 1-5, #30 TAB Prov:DAQUAN CINTRON MD 09/07/17 Ibuprofen* (Ibuprofen*) 800 Mg Tablet, 800 MG PO Q6, #30 TAB Prov:DAQUAN CINTRON MD 09/07/17 Reported Medications Multivit/Min/Fol Ac/Iron/Pren* ( S*) 1 Tab Tab, 2 TAB PO DAILY, TAB 06/25/16 Allergies Allergies: Coded Allergies: No Known Allergy (Unverified , 09/05/17) PMhx/Soc History of Surgery: Yes (APPENDECTOMY) Anesthesia Reaction: No Hx Neurological Disorder: No Hx Respiratory Disorders: No Hx Cardiac Disorders: No Hx Psychiatric Problems: No Hx Miscellaneous Medical Probl: Yes (migraines) Hx Alcohol Use: No Hx Substance Use: No Hx Tobacco Use: Yes Physical Exam Physical Exam Constitutional:Well-developed. Well-nourished. Respiratory: Not using accessory muscles of respiration.Lungs were clear to auscultation bilaterally. No rhonchi. No rales. No wheezing. Cardiovascular: Regular rate regular rhythm.No murmurs. No rubs were appreciated.S1, S2 normal. Distal pulses are palpable 2+ bilaterally. Muscle skeletal: Full range of motion of both the upper and lower extremities bilaterally.Normal muscle tone.No assymetrical calf tenderness or swelling. Muscular strength 4 out of 5 in the left upper extremity compared to the right upper extremity. Skin: No petechia, no purpura. No lesions on the palms or the soles of the feet. No maculopapular rash. NEURO: Patient was alert, awake, orientated x3.No facial droop. Gait observed and normal with no ataxia.Speech had regular rate and rhythm. No focal ne urological deficits. Procedures/MDM This is a 27-year-old female that that she has a history of a demyelinating disease. The patient was afebrile and did not appear to have any signs of meningitis. I did obtain an MRI of the patient's brain as requested by the patient. This was reviewed by the radiologist and indicated the following: The patient will follow up with her neurologist. The patient was discharged home in fair condition. They were instructed to return to the emergency d epartment at any time if there was any worsening of their condition. The patient stated they would follow up with their PCP in the next 24-48 hours to initiate a suitable medication regimen under the care of their PCP as well as to allow their PCP to monitor any drug reactions. The patient was discharged home with prescriptions after they gave informed consent to the new medication. They were also fully informed by myself on the adverse effects and adverse drug interactions in order to provide adequate safeguards to prevent possible adverse reactions to medications. Departure Diagnosis: Primary Impression: Left arm weakness Condition: MARYSE Cross MD May 31, 2018 09:32
[2018-05-31] MEDS ORDERED: DONE10TA7 PO (10:25)
[2018-05-31] MEDS ORDERED: BISA10SU75 PR (10:25)
[2018-05-31] MEDS ORDERED: MINE133E23 PR (10:26)
[2018-05-31] MEDS ORDERED: GABA300C16 PO (10:27)
[2018-05-31] MEDS ORDERED: HEPA500021 IJ (10:28)
[2018-05-31] MEDS ORDERED: MELA3TAB17 PO (10:28)
[2018-05-31] MEDS ORDERED: MULTI PO (10:29)
[2018-05-31] MEDS ORDERED: HYDR-4011 PO (10:30)
[2018-05-31 12:56] VITALS: BP 100/60; PULSE 63; RESP 18
== END 2018-05-31 12:59 | disposition home or self-care (01) ==
LOC: E/R 09:10
DX: R53.1 Weakness (principal); R51 Headache
CPT/HCPCS: 70551; 72141; 72146

== ENCOUNTER → 2018-09-28 | Outpatient (CLI) | payer BC | END | disposition home or self-care (01) | LOC: EEVIPCON → LAB 10:13 | PROVIDERS: ATTEND Psychiatry & Neurology Neurology | DX: R53.82 Chronic fatigue, unspecified (principal); D72.810 Lymphocytopenia; G35 Multiple sclerosis; R53.83 Other fatigue | CPT/HCPCS: 85651; 86038; 86140; 86235; 86430; 86480; 86617; 86704; 86709; 86787; 86803; 87340 ==

== ENCOUNTER → 2018-10-30 | Outpatient (CLI) | payer BC | END | disposition home or self-care (01) | LOC: LAB 12:12 | PROVIDERS: ATTEND Internal Medicine | DX: A08.4 Viral intestinal infection, unspecified (principal) | CPT/HCPCS: 80053; 81001; 82306; 82728; 83540; 84443; 85025; 86674 ==